=== PATIENT | male | born 1965 | race Caucasian/White ===

== ENCOUNTER 2024-05-30 14:40 | Observation (INO) | payer MEDICAID, SELFPAY ==
[2024-05-30] VITALS (24 sets, daily range): BP systolic 103–134; BP diastolic 42–70; PULSE 57–76; RESP 11–24; TEMP 36.4–37.4; O2SAT 91–100; BMI 28.6
--- NOTE | 2024-05-30 14:45 | DI.RAD_ITS ---
Exam(s) XR HIP LT COMPLETE AP PELVIS XR FEMUR LT EXAM: XR HIP LT COMPLETE AP PELVIS CLINICAL HISTORY: skiing,fall on left hip, r/o fx. TECHNIQUE: 2D digital imaging was performed. Two views of the pelvis and femur. COMPARISON: CR XR FEMUR LT from 05/30/2024 FINDINGS: BONES: There is a subcapital fracture of the left femur with a hip shaft with displacement of the fem ur anteriorly with respect to the femoral head. No additional fractures are identified. No bony greg tructive lesion is seen. JOINTS: No dislocation present. The SI joints and pubic symphysis are intact. There are severe degene rative changes in the left knee. There are [id number] degenerative changes of both hips. Dege nerative changes are also noted in the lower lumbar spine. SOFT TISSUE: Vascular calcifications. IMPRESSION: Subcapital fracture of the left femur. DATA REPOSITORY: RADIATION DOSE DELIVERED:
--- NOTE | 2024-05-30 14:46 | DI.RAD_ITS ---
Exam(s) XR HIP LT COMPLETE AP PELVIS XR FEMUR LT EXAM: XR HIP LT COMPLETE AP PELVIS CLINICAL HISTORY: skiing,fall on left hip, r/o fx. TECHNIQUE: 2D digital imaging was performed. Two views of the pelvis and femur. COMPARISON: CR XR FEMUR LT from 05/30/2024 FINDINGS: BONES: There is a subcapital fracture of the left femur with a hip shaft with displacement of the fem ur anteriorly with respect to the femoral head. No additional fractures are identified. No bony greg tructive lesion is seen. JOINTS: No dislocation present. The SI joints and pubic symphysis are intact. There are severe degene rative changes in the left knee. There are yeri-qj-[id number] degenerative changes of both hips. Dege nerative changes are also noted in the lower lumbar spine. SOFT TISSUE: Vascular calcifications. IMPRESSION: Subcapital fracture of the left femur. DATA REPOSITORY: RADIATION DOSE DELIVERED:
--- NOTE | 2024-05-30 14:48 | W.ED.GENAD ---
Discharge Plan Disposition Patient Disposition: Admit to [facility] Condition: Good Discharge Details Chief Complaint: Orthopedic Clinical Impression: Closed fracture of left hip ED Provider: Ricardo Menendez General Date/Time Provider Initiated Documentation: 05/30/24 14:46. HPI Narrative: 59-year-old male with no significant past medical history who lives in [place] but is visiting here to ski this weekend, presents today for evaluation of fall and left leg pain. Patient was out skiing, he had his helmet on, he tried to do a 360 on the snow (not in the air) and unfortunately fell. He may have twisted his leg, but he is uncertain. He landed and hit on his left hip. He was not able to get up after this. preparer samples and repairs and then subsequent EMS brought him here for further evaluation. He was given a gram of Tylenol. EMS noted that his leg was rotated externally. He is unable to move it. No other complaints at this time. He did not hit his head. He did not lose any consciousness. He has no pain in his chest arms legs head or neck. No other complaints at this time. He is not on any blood thinners. He does not take any medications. Related Data Home Medications ?Medication ?Instructions ?Recorded ?Confirmed Unknown [No Known Home Meds] 05/30/24 05/30/24 Allergies Allergy/AdvReac Type Severity Reaction Status Date / Time No Known Allergies Allergy Unverified 05/30/24 15:33 General Stated Complaint: Orthopedic SILVANA: 3 Exam Narrative Exam Narrative: 1.Const: Well-nourished, Well-developed, appearing stated age 2.Eyes: PERRL, no conjunctival injection, and symmetrical lids. 3.ENT: Atraumatic external nose and ears. Moist MM. Neck: Symmetric, trachea midline, No thyromegaly. There is no evidence of raccoon eyes, klein sign, CSF rhinorrhea, mastoid tenderness, cranial crepitus, exophthalmos, or hyphema. Patient demonstrates intact dentition with no signs of tooth avulsion or fracture, no signs of jaw deformity, no evidence of a LeFort's fracture, with an intact palate, nose and orbital region. There is no evidence of a nasal septal hematoma. No proptosis. Jaw closes symmetrically. Airway is clear. 4.CVS: Regular rate and rhythm, Normal s1 and s2. No murmurs, carotid bruits, rubs, or gallops. Radial pulses 2+ bilaterally and symmetric. Dorsalis pedis pulses 2+ bilaterally and symmetric. 2+ capillary refill. No evidence of distant heart sounds. No extremity edema. No evidence of gross hemorrhage. 5.RESP: Airway clear, no obstructions. No abrasions or ecchymosis. Chest movement symmetric with respirations. No chest wall tenderness. Trachea midline. No crepitus. No step offs. No paradoxical movements. Lungs are clear to auscultation bilaterally. No rales, rhonchi, wheezing or stridor. Breath sound symmetric. No Sucking chest wounds. No clinical evidence of significant chest trauma. 6.GI: Soft, nondistended, nontender. Bowel tones normoactive. No masses or organomegaly. No ecchymosis or abrasions. No periumbilical ecchymosis or seatbelt sign. No flank or CVA tenderness. No clinical signs of significant trauma. No clinical evidence of significant abdominal trauma. 7.MSK: No gross deformities or discolorations or lesions. Tolerates full range of motion of bilateral upper extremities and right lower extremities without tenderness. All compartments of upper and lower extremities are soft with no tenderness. Vascular exam demonstrates brisk capillary refill and intact pulses in all extremities. Pelvic exam demonstrates a stable pelvis, nontender to lateral compression and palpation of symphysis pubis. Patient does have notably minimal tenderness over the greater trochanter of the left hip. Left lower extremity demonstrates external rotation and slight shortening. Patient is unable to flex at the hip or rotate internally or externally at the hip. No cervical thoracic or lumbar spine tenderness. 8.Skin: Warm, Dry. No rashes or lesions. 9.Neuro: town planner II-XII grossly intact. Sensation grossly intact, no focal neurologic deficits. 10.Psych: (AAO) x3. Appropriate mood and affect Course Vital Signs Vital signs: Vital Signs Temperature 36.4 C L 05/30/24 14:42 Pulse 58 L 05/30/24 14:42 Respiratory Rate 14 05/30/24 14:42 Blood Pressure 118/58 L 05/30/24 14:42 Pulse Oximetry 98 05/30/24 14:42 Temperature 36.4 C L 05/30/24 14:42 Pulse 58 L 05/30/24 14:42 Respiratory Rate 14 05/30/24 14:42 Blood Pressure 118/58 L 05/30/24 14:42 Pulse Oximetry 98 05/30/24 14:42 Pain Level 3 05/30/24 14:42 Medical Decision Making 59-year-old male with no significant past medical history who lives in [place] but is visiting here to ski this weekend, presents today for evaluation of fall and left leg pain. Patient was out skiing, he had his helmet on, he tried to do a 360 on the snow (not in the air) and unfortunately fell. He may have twisted his leg, but he is uncertain. He landed and hit on his left hip. He was not able to get up after this. preparer samples and repairs and then subsequent EMS brought him here for further evaluation. He was given a gram of Tylenol. EMS noted that his leg was rotated externally. He is unable to move it. No other complaints at this time. He did not hit his head. He did not lose any consciousness. He has no pain in his chest arms legs head or neck. No other complaints at this time. He is not on any blood thinners. He does not take any medications. Patient does have notably minimal tenderness over the greater trochanter of the left hip. Left lower extremity demonstrates external rotation and slight shortening. Patient is unable to flex at the hip or rotate internally or externally at the hip differential is highest for hip fracture. Will get x-ray imaging. Patient does not want anything additional for pain. X-ray shows evidence of left hip fracture. Spoke with Dr. Brown, he will be taking the patient to the OR for surgical management. Labs and type and screen and EKG will be performed in preparation for OR. Patient is NPO since 9 AM. I have extensively reviewed the treatment plan with the patient. I have addressed all patient concerns at this time. I have also discussed the plan with the admitting physician and they agree with the current assessment and plan and have agreed to assume responsibility for the patient. All parties demonstrate verbal understanding and agreement with our assessment and plan at this time. The documentation in this chart was dictated using [employer] dictation software. Please excuse any dictation errors. FINDINGS: BONES: There is a subcapital fracture of the left femur with a hip shaft with displacement of the femur anteriorly with respect to the femoral head. No additional fractures are identified. No bony destructive lesion is seen. JOINTS: No dislocation present. The SI joints and pubic symphysis are intact. There are severe degenerative changes in the left knee. There are opay-[id number] degenerative changes of both hips. Degenerative changes are also noted in the lower lumbar spine. SOFT TISSUE: Vascular calcifications. IMPRESSION: Subcapital fracture of the left femur. FINDINGS: BONES: There is a subcapital fracture of the left femur with a hip shaft with displacement of the femur anteriorly with respect to the femoral head. No additional fractures are identified. No bony destructive lesion is seen. JOINTS: No dislocation present. The SI joints and pubic symphysis are intact. There are severe degenerative changes in the left knee. There are fgmu-bk-[id number] degenerative changes of both hips. Degenerative changes are also noted in the lower lumbar spine. SOFT TISSUE: Vascular calcifications. IMPRESSION: Subcapital fracture of the left femur. Quality:SDOH Health Related Social Needs: No Data to Display PFSH All Active Problems (Updated 05/30/24 @ 15:34 by Ricardo Menendez DO) Closed fracture of left hip (Acute) Social History Smoking/Tobacco Use Status: Never Smoking risk assessment performed?: Yes Alcohol Intake: current Alcohol Intake frequency: a few times a week Drug use: Never Substance use type: does not use Housing: house Do you feel safe at home: Yes Do you feel safe in your relationship?: Yes
--- NOTE | 2024-05-30 15:15 | RT.EKG_ITS ---
APPROVED REPORT Exam: Resting ECG Reason for Exam: surgery Patient Location: E HR:62 bpm ECG Measurements Heart Rate 62 AXIS OH 187 P -9 QRSd 108 QRS 75 QT 416 T 33 QTc 425 Conclusion Sinus rhythm...normal P axis, V-rate 60- 99 I have reviewed and interpreted ECG and agree with software generated interpretation.
[2024-05-30 15:42] LABS: Abs Immature Grans 0.05 10^3/uL (0.0-0.06); Absolute Basophil Count 0.01 10^3/uL (0.0-0.2); Absolute Eosinophil Count 0.24 10^3/uL (0.0-0.7); Absolute Lymphocyte Count 1.25 10^3/uL (1.2-3.4); Absolute Monocyte Count 0.48 10^3/uL (0.1-0.8); Absolute Neutrophil Count 8.12 10^3/uL (1.2-6.7); Basophils % 0.1 %; Eosinophils % 2.4 %; HCT 36.5 % (40.0-50.0); HGB 12.2 g/dL (13.5-17.5); Immature Grans % 0.5 %; Lymphocytes % 12.3 %; MCHC 33.4 % (32.0-36.0); MCV 93 fL (80-95); MPV 10.1 fL (8.0-11.0); Monocytes % 4.7 %; Platelet Count 184 10^3/uL (130-400); RBC 3.93 10^6/uL (4.36-5.78); RDW 12.9 % (11.8-14.1); RDW-SD 44.4 fL; WBC 10.15 10^3/uL (4.4-10.8)
[2024-05-30] MEDS: MORPHine 4 MG/ML SYR IVP (15:51)
[2024-05-30 15:53] LABS: INR 1.1 (0.9-1.1); PTT Activated 20.5 sec (20.6-30.2); Prothrombin Time 10.6 sec (9.1-11.1)
--- NOTE | 2024-05-30 15:55 | ANES.PREOP_ITS ---
General Info Date of Service Date Performed: 05/30/24 Height: 5 ft 9 in Weight: 88 kg Body Mass Index (BMI): 28.6 Surgical Procedure: Operation Date: 05/30/24 17:50 Proposed Procedure Side Surgeon p Hip Total Hip Anterior Gael Brown MD Meds Allergies and Home Medications Allergies Allergy/AdvReac Type Severity Reaction Status Date / Time No Known Allergies Allergy Unverified 05/30/24 15:33 Home Medication ?Medication ?Instructions ?Recorded Unknown [No Known Home Meds] 05/30/24 Current Visit Medications: Current Medications Generic Name Dose Route Start Last Admin Trade Name Freq PRN Reason Stop Dose Admin IV Miscellaneous Supplies 1 each 05/30/24 15:00 Iv Access-Emergency Dept IV DIRECTED MARCO A Sodium Chloride 0 ml 05/30/24 14:46 Normal Saline Flush 10 Ml Syr IVP PRN PRN Sodium Chloride 0 ml 05/30/24 20:00 Normal Saline Flush 10 Ml Syr IVP BID MARCO A Sodium Chloride 0 ml 05/30/24 14:46 Normal Saline 10 Ml Vial IJ DIRECTED PRN PFSH Active Problems Active Problems: Problem Status Onset Code Closed fracture of left hip Acute S72.002A Tobacco Smoking/Tobacco Use Status: Never Alcohol Alcohol Intake: current Alcohol intake frequency: a few times a week Substance Use Substance use: Never Substance use type: does not use Vital Signs and Lab Results Vital Signs Most Recent Vital Signs in EMR: Most Recent Vital Signs Temp Pulse Resp BP Pulse Ox 36.4 C L 70 14 103/51 L 93 05/30/24 14:42 05/30/24 15:31 05/30/24 14:42 05/30/24 15:30 05/30/24 15:31 Lab Results 05/30/24 15:35 05/30/24 15:35 Blood Type / Crossmatch: 2 Antibody Screen Pending 05/30/24 Complete Blood Count: 2 White Blood Count Pending 05/30/24 15:35 Red Blood Count Pending 05/30/24 15:35 Hemoglobin Pending 05/30/24 15:35 Hematocrit Pending 05/30/24 15:35 Platelet Count Pending 05/30/24 15:35 Complete Metabolic Panel: 2 Sodium Pending 05/30/24 15:35 Potassium Pending 05/30/24 15:35 Chloride Pending 05/30/24 15:35 Carbon Dioxide Pending 05/30/24 15:35 BUN Pending 05/30/24 15:35 Creatinine Pending 05/30/24 15:35 Est GFR (CKD-EPI 2020) Pending 05/30/24 15:35 Calcium Pending 05/30/24 15:35 Albumin Pending 05/30/24 15:35 Glucose Pending 05/30/24 15:35 Liver Function Panel: 2 Alanine Aminotransferase (ALT/SGPT) Pending 05/30/24 15: 35 Aspartate Amino Transf (AST/SGOT) Pending 05/30/24 15:35 Coagulation Panel: 2 INR International Normalized Ratio 1.1 (0.9-1.1) 05/30/24 15:3 5 Prothrombin Time 10.6 sec (9.1-11.1) 05/30/24 15:35 Activated Partial Thromboplast Time 20.5 sec (20.6-30.2) L 05/30/24 15:35 Cardiac Panel: 2 No Data to Display Arterial Blood Gas: 2 No Data to Display Venous Blood Gas: 2 No Data to Display Pancreas Panel: 2 No Data to Display Thyroid Panel: 2 No Data to Display Infectious Disease: 2 No Data to Display Blood Cultures: 2 No Data to Display Toxicology Panel: 2 No Data to Display Anesthesia Assessment and Plan Anesthesia History Personal History: No History of Anesthesia Complications Family History: Other (Unknown family hx) Exercise Tolerance Exercise Tolerance: Metabolic Equivalents>4 Pertinent Negatives Pertinent Negatives: No Symptoms of GERD Cardiac & Pulmonary Exam Cardiac Exam: Normal S1/S2 Heart Sounds Pulmonary Exam: Clear Bilateral Breath Sounds Implantable Cardiac Device Does patient have a Pacemaker or an ICD?: No Airway Exam Known Difficult Airway: No Mallampati Class: 2 Mouth Opening: Normal (> 3cm) Thyromental Distance: Greater than 3 cm Neck Range of Motion: Full ROM Neck Circumference: Normal Teeth Condition: Normal Dentition ASA Classification ASA Score: ASA 2 Emergency Case?: Yes NPO Status NPO Status: NPO Clears >2 hours, Solids >8 hours Anesthesia Plan Resuscitation Status: Full Code Anesthesia Technique: General Anesthesia Airway Planned: Endotracheal Tube Monitors Used: Standard Monitors
--- NOTE | 2024-05-30 15:55 | W.ORTHOCONSU ---
Date of service: 05/30/24 Time of Service: 15:45 History of Present Illness History of Present Illness Chief Complaint: Left Hip Pain Narrative: Saleem is an active 59-year-old male who is seen today at [facility]. He tried to do 360 but the left leg got stuck in the snow and he had an immediate painful sensation and went down to the ground. He is unable to ambulate and was brought to the emergency department by EMS services. I was called for consultation and management of a left femoral neck fracture. He denies any other significant medical injuries or issues. He denies previous surgery or major injury. He denies numbness or tingling. He denies any active medical issues or recent illness. Consults Consult date: 05/30/24 Requesting physician: Ricardo Menendez Consult Reason Left femoral neck fracture Assessment and Plan Assessment and plan (1) Displaced fracture of left femoral neck: Status: Acute Assessment and plan: Saleem is a 59-year-old active male who suffered a fracture of the left femoral neck. This is completely displaced. He also has concomitant arthritis about the left hip. I was very honest with Saleem that given the displacement of this femoral neck fracture, reduction and fixation carries a risk of avascular necrosis, potentially up to 30% which would likely result in need for additional surgery in the form of a hip replacement. He also already has arthritis about the left hip. He denies being terribly symptomatic about his left hip but he is symptomatic from his left knee arthritis. I had a long discussion with Saleem about the treatment options but my recommendation would be for hip replacement in this situation. The likelihood of complication from hip replacement is much lower than the potential risk of osteonecrosis. Additionally, the functional recovery from hip replacement is usually going to be more full with less restrictions then with reduction and fixation. I reviewed some the technical details of hip replacement. I did discuss some of the unique risk that accompany hip replacement such as infection, periprosthetic fracture, dislocation. I was very honest with him that major complications are rare, less than 1%, yet there are 5 to 10% of patients do have some form of transient nerve issue, weakness, stiffness, tendinitis, bursitis. He was very clear that he does not want to have to consider a second procedure and wants to be as mobile and is active as possible soon as possible. Therefore, with his age, displaced nature of the fracture, fracture location, and underlying arthritis, I recommend proceeding with a hip replacement. He last had anything to eat and drink around 9 AM and therefore we will proceed with surgery this evening. Review of Systems All systems reviewed & are unremarkable except as noted in HPI and below PFSH All Active Problems (Updated 05/30/24 @ 16:01 by Gael Brown MD) Displaced fracture of left femoral neck (Acute) Closed fracture of left hip (Acute) Social History Smoking/Tobacco Use Status: Never Smoking risk assessment performed?: Yes Alcohol Intake: current Alcohol Intake frequency: a few times a week Drug use: Never Substance use type: does not use Housing: house Do you feel safe at home: Yes Do you feel safe in your relationship?: Yes Exam Const General: cooperative, healthy appearing, uncomfortable and no acute distress Resp Effort & Inspection: normal respiratory effort Auscultation: clear to auscultation bilaterally Cardio Rate: regular rate Rhythm: regular rhythm Extrem Other: Evaluation of the left lower extremity shows a slightly externally rotated and shortened left lower leg. There is no pain to compression of the pelvis. There is pain with palpation of the proximal left leg. No pain at the level of the lower leg, ankle, or foot. Sensation intact to light touch over the deep and superficial peroneal nerve and tibial nerve. Palpable DP and PT pulse. Results Last Vital Signs Temp 36.4 C L 05/30/24 14:42 Pulse 70 05/30/24 15:31 Resp 14 05/30/24 14:42 BP 103/51 L 05/30/24 15:30 Pulse Ox 93 05/30/24 15:31 Labs 05/30/24 15:35 05/30/24 15:35 Labs: Laboratory Results - last 24 hr 05/30/24 15:35 PT 10.6 INR 1.1 APTT 20.5 L Imaging Imaging Studies: X-ray of the left femur and left hip shows a subcapital transcervical femoral neck fracture with complete displacement. There is posterior angulation of the femoral head as well as shortening and varus collapse. There are notable arthritic changes seen already within the hip noted by osteophytes, subchondral sclerosis and narrowing of the hip joint space as well as osteophytes of the lateral head?neck junction. He also has notable arthritic change seen within the left knee and within the lower lumbar spine.
[2024-05-30 15:56] LABS: ALT 40 U/L (16-63); AST 32 U/L (15-37); Albumin 3.4 g/dL (3.4-5.0); Alkaline Phosphatase 56 U/L (46-116); BUN 19 mg/dL (7-18); Bilirubin, Total 0.3 mg/dL (0.2-1.0); CREATININE 0.9 mg/dL (0.70-1.30); Calcium 8.9 mg/dL (8.5-10.1); Chloride 108 mmol/L (98-107); Estimated GFR 98.38 (mL/min/1.73m2); Glucose 104 mg/dL (74-106); Sodium 144 mmol/L (136-145); Total Protein 6.6 g/dL (6.4-8.2)
[2024-05-30] MEDS: Lactated Ringers 1,000 ML 100 ML IV (17:18)
--- NOTE | 2024-05-30 19:09 | ROE_ITS ---
Operative Note Operative Note PRE-OP DIAGNOSIS: Displaced Left Femoral Neck Fracture POST-OP DIAGNOSIS: same PROCEDURE: Left Anterior Total Hip Arthroplasty with Intraoperative Navigation SURGEON: Gael Brown PERINATAL TECHNICIAN: Kayla Garber ANESTHESIA TYPE: General LMA/ETT Refer to Anesthesia Record ESTIMATED BLOOD LOSS: 600 PATHOLOGY: none sent TOURNIQUET TIME: 0 COMPLICATIONS: None Patient was transported to: PACU Patient's condition: stable Implants: 1. Depuy Golf Acetabular Component, 56mm 2. Depuy Acetabular Liner, [id number] 3. Depuy Actis Standard Collared Femoral Stem, Size 6 4. Depuy Altrx Ceramic Femoral Head, Size 36+5mm Indications: I have seen Saleme in in consultation from the emergency department for displaced left femoral neck fracture. Given the displaced nature of the fracture, his age, and underlying arthritis, I recommended hip replacement for the ideal treatment. I discussed the technical details of a hip replacement. I explained the risks of the procedure to include, but not limited to, bleeding, infection, pain, stiffness, fracture, damage to nerves and vessels, damage to muscles and tendons, loosening, instability, leg length inequality, need for repeat procedure, blood clot and cardiopulmonary demise. Despite these risks, [NAME] elected to proceed. Findings: There was a comminuted fracture of the subcapital the transcervical region of the left femoral neck. There also appeared to be some fracturing of the cartilage of the acetabulum but did not extend into the acetabular bone. There was significant vascularity of the acetabulum during the reaming process which led to some blood loss but no specific vascular injury. A cementless hip replacement was placed without difficulty. Procedure Description: Saleem was greeted in the PACU where the correct side was identified and marked. The consent was reviewed with the patient and signed. The history and physical was updated. All questions were answered. He was taken back to the operating room. A general anesthetic was then administered. The feet were wrapped with cast padding and Coban and then placed into the boot liners and then into the boots. Care was taken to protect the skin and make sure the heels were fully down and the boots were stable. The patient was then positioned onto the HANA table. Both legs were held in a neutral position. SCDs were applied. The patient was then slid down onto a peroneal post. Prophylactic antibiotics in the form of Cefazolin were administered. 1g of Tranxemic Acid was given intravenously within 30 minutes of incision. The left leg was then prepped with Chloraprep and draped in a standard fashion. A second prep with Chloraprep was performed prior to placement of a shower-curtain type drape with Iodine impregnated skin protection. A timeout to confirm correct identity, side and site, procedure, allergies, anesthesia, and medical concerns was performed. An obliquely oriented incision was made starting lateral to the ASIS and running distal over the Tensor Fascia Janis (TFL) muscle belly toward the fibular head, approximately 10cm. The skin and soft tissue was dissected sharply, through Gauri?s fascia, and to the fascia of the TFL. With the fascia and superior border of the IT band identified, the fascia was incised with a new knife just above any perforators from the IT band. The TFL muscle belly was bluntly dissected away from the fascia and moved laterally. The fat between TFL and rectus was identified to ensure the dissection was not within the TFL. Blunt dissection created space between abductors and the capsule and retractor was placed over the lateral femoral neck. The fibers of the rectus femoris tendon were identified and these were freed from the anterior capsule. A second cobra retractor was placed around the medial femoral neck. The TFL was further retracted laterally to show the deep fascia. Careful dissection through this layer identified three main crossing vessels of the lateral femoral circumflex. These were cauterized in multiple locations and then cut without any noticeable bleeding. The TFL was further released bluntly from the deep fascia to expose anterior hip capsule and fat The soft tissue orthopaedic retractor was then placed beneath the TFL and against sartorius and medial soft tissues to protect and retract the soft tissues. A T-capsulotomy was then performed starting at the superior lateral acetabulum and moving distally to the intertrochanteric ridge. These capsular flaps were tagged with a No. 1 Vicryl and elevated from within. The capsular flaps were released to the shoulder of the lateral neck and to the lesser trochanter to give excellent visualization of the proximal femur. The fracture of the femoral neck extended from the subcapital region medially to more transcervical region laterally. There is some comminution as well. The femoral head was then removed with use of corkscrew. A neck osteotomy was performed using an oscillating saw based on preoperative templates. This cut started in the shoulder and of the lateral neck and exited medially. The saw was at all times directed medially to avoid injury to the greater trochanter. This bone fragment was then removed. Traction was released after head removal. This was measured on the back table to determine the starting reamer size. Portions of the rectus obscuring visualization were minimally elevated off the superior acetabulum. An anterior retractor was placed over the anterior wall between capsule and labrum and attached to the Gripper retraction system. The femur was rotated to 90 degrees and medial capsule was fully released until the lesser trochanter was palpable and visible; the femur was returned to 30 degrees. A posterior retractor was placed similarly between capsule and labrum. This provided excellent visualization. The contents of the cotyloid fossa were removed with electrocautery and the labrum was removed with a knife. There was some fracturing of the superior acetabular cartilage which look to be potentially traumatic in nature. A Corona was placed in the cracks which did not seem to go down through the bone but simply were fissuring of the cartilage surface. There was some chondromalacia the superior acetabulum as well as a lateral osteophyte. Acetabular reaming began with a 52mm reamer. This first reaming was directed anterior to posterior and medial to get down to the true floor. This was inspected and reamed until the true floor was reached. There was notable bleeding coming from the acetabular bone centrally. There were no bleeding from the obturator artery branches within the cotyloid fossa but instead it was from the actual cancellous bone exposed with the reaming process. The anterior retractor was then released and entry and exit was provided by traction on the capsular flaps. I then reamed sequentially up to a 56mm reamer where good fit was obtained. The larger reamers were oriented based on anatomical reference of the anterior and lateral augustine to ensure proper abduction and anteversion. Positioning and size was confirmed with the fluoroscopy. A 56mm Depuy Golf acetabular component was selected. The acetabulum was reamed around the periphery with the selected acetabular size to prevent a rim fit. The deep tissues were irrigated. The acetabular component was then impacted in a position of about 40-45 degrees of abduction and 15-20 degrees of anteversion, using the patient?s anatomy as the ultimate landmark. Fluoroscopy was used to confirm this. There was excellent commercial teller of the acetabular component and the inserting handle was removed. The acetabular liner, Depuy [id number] polyethylene liner, was inserted and lined up with the tines of the acetabular component. There was no soft tissue interposition. The liner was then impacted into position and confirmed to be well-seated. A portion of the zulema-articular cocktail was then injected around the acetabulum into the capsule and periosteum. This cocktail consisted of 123mg of Ropivacaine, 0.25mg of Epinephrine, 0.04mg of Clonidine, and 15mg of Ketorolac, diluted to 50cc. The leg was rotated to 120 degrees. Any remaining medial capsule was released until the lesser trochanter was easily palpable. A retractor was placed medially. The lateral capsule was further released into the shoulder to allow access to the greater trochanter. A Frankel retractor was placed over the greater trochanter which allowed the trochanter to flip in front of the capsule for excellent exposure. The leg was brought down into maximal extension and 20 degrees of adduction while ensuring there was no impingement on the acetabulum. Any remnant capsule within the trochanter was released. Piriformis and obturator externis were identified and protected. There was excellent access to the proximal femur. The lateral neck remnant was removed with a rongeur. A blunt canal probe was used to identify the canal and trajectory for later broaching. A box osteotome initiated the broach course. A small curved rasp and a curved curette were used to work laterally. Broaching then began with a starter Actis broach. This was inserted manually around the trochanter and into the canal before mallet blows. The broach was seated to a few millimeters below the cut level based on the neck cut and the preoperative template. Sequential broaching was continued with the Coco Controllercise pneumatic broaching device until a tight fit was obtained with good rotational control of the femur. A trial standard neck was inserted along with a +5 trial head. The leg was brought out of extension and adduction and then reduced with traction and internal rotation. The leg was stable anteriorly in a position of 30 degrees of extension and 90 degrees of external rotation. Fluoroscopy was used to ensure there was no fracture and the stem was seated well. Leg lengths were checked with an AP pelvis and pelvic reference points. Dragon Inside navigation system was used to confirm appropriate positioning and leg length and offset. Once content with the desired offset and leg lengths, the leg was brought back into extension, external rotation and adduction. The periosteum and surrounding tissue was injected with remaining portion of the zulema-articular cocktail. The proximal femur was irrigated as well as the deep tissues. The Depuy Actis standard collared stem, size 6, was then manually inserted into the proximal femur making sure to control rotation. It was then malleted into position with light blows, giving breaks to allow bone expansion and decrease risk of fracture. The selected Depuy Altrx Ceramic Head, size 36+5mm, was then placed onto the clean and dry trunnion and secured with impaction onto the tapered fit. The leg was brought back out of extension and adduction and reduced with traction and internal rotation. Stability was confirmed with no shuck at 90 degrees of external rotation and 30 degrees of extension. No impingement th rough range of motion arc. Final x-ray images were obtained with fluoroscopy to confirm adequate positioning and no intraoperative fracture. The deep tissues were thoroughly irrigated with Surgiphor, betadine solution. This was allowed to sit in the wound for 3 minutes before being thoroughly irrigated out with normal saline. The capsule was then reapproximated with the previously placed sutures. The TFL fascia was finally closed with a No. 2 Stratafix, barbed suture. Deep tissues were then reapproximated with 0 Vicryl and a running 2-0 Vicryl. The skin was closed with a running 4-0 Monocryl in a subcuticular fashion. This was reinforced with skin glue. A Mepilex silver dressing was applied. At the end of the case, all counts were correct. Saleem was transferred to the hospital bed without difficulty and suffering no apparent complication except for slightly higher than expected blood loss due to acetabular bone bleeding yet he remained stable throughout the entirety of the case. Saleem has a good prognosis. Physical therapy will start today and without restrictions, weight-bearing as tolerated. Aspirin 81mg BID will be used for DVT prophylaxis. Date of Procedure: 05/30/24
--- NOTE | 2024-05-30 19:13 | DI.RAD_ITS ---
Exam(s) XR HIP LT IN OR EXAM: XR HIP LT IN OR CLINICAL HISTORY: LEFT HIP FRACTURE. TECHNIQUE: 2D digital imaging was performed. COMPARISON: No exams were available for comparison FINDINGS: Fluoroscopy was provided intraoperatively during left hip arthroplasty. See procedure report for det ails. Total fluoroscopy time 28.8 seconds IMPRESSION: Radiation exposure index/cumulative dose: radha Solomon=3.1408 mGY DATA REPOSITORY: RADIATION DOSE DELIVERED:
--- NOTE | 2024-05-30 20:03 | W.ANESPOSTOP ---
Postoperative Evaluation Date, Time and Location Date Performed: 05/30/24 Time Performed: 20:03 Patient Location: PACU Vital Signs Most Recent Imported Vital Signs: Most Recent Vital Signs Temp Pulse Resp BP Pulse Ox 36.5 C 73 141 H 122/70 97 05/30/24 19:56 05/30/24 19:56 05/30/24 19:56 05/30/24 19:56 05/30/24 19:56 Pain Score Most Recent Pain Score: Most Recent Pain Score Pain Level 0 05/30/24 19:56 Assessment Mental Status: Awake (Alert & Oriented to Patient Baseline) Airway and Respiratory Function: Patent airway with normal (patient baseline) respiratory exam Cardiovascular Function: Hemodynamically Stable Hydration Status: Adequately Hydrated Nausea & Vomiting: No Nausea or Vomiting Pain: Pt. Denies Any Pain Peripheral Nerve Block: Patient did not receive a nerve block
[2024-05-30] MEDS: Tranexamic Acid 650 MG TAB 1300 MG PO (20:39)
[2024-05-30] MEDS: HYDROmorphone 2 MG/ML SYR 0.5 MG IVP (20:40)
[2024-05-30] MEDS: Normal Saline Flush 10 ML SYR IVP (20:41)
--- NOTE | 2024-05-30 21:43 | NUR.NOTE ---
Received patient from recovery room at 20:15. Patient alert and oriented with c/o 8/10 left hip pain. Nursing Note:
[2024-05-30] MEDS: Ketorolac 15 MG/ML VIAL IVP (23:03)
[2024-05-30] MEDS: ceFAZolin 1 GM/50 ML BAG IVPB (23:05)
[2024-05-31 04:28] VITALS: BP 104/53; PULSE 61; RESP 18; TEMP 37.6; O2SAT 93
[2024-05-31] MEDS: Ketorolac 15 MG/ML VIAL IVP ×2 (05:53→10:49)
[2024-05-31] MEDS: ceFAZolin 1 GM/50 ML BAG IVPB ×2 (06:24→13:20)
[2024-05-31 07:07] LABS: HCT 31.3 % (40.0-50.0); HGB 10.6 g/dL (13.5-17.5); MCH 31.2 pg (27.0-33.0); MCHC 33.9 % (32.0-36.0); MCV 92 fL (80-95); MPV 10.8 fL (8.0-11.0); Platelet Count 188 10^3/uL (130-400); WBC 11.72 10^3/uL (4.4-10.8)
--- NOTE | 2024-05-31 07:14 | W.PM.PROGNOT ---
Date of Service Date of service: 05/31/24 Time of Service: 07:14 Assessment and Plan Assessment and plan (1) Displaced fracture of left femoral neck: Status: Acute Assessment and plan: Saleem is a 59-year-old male who is status post left hip replacement for displaced femoral neck fracture. He appears to be doing well. We did lose more blood than usual yesterday. His hemoglobin this morning did drop 2 points. However, his vital signs been stable. He is asymptomatic. I would expect a drop a little bit more from this point but should not be enough to be clinically relevant. We will start mobilization this morning and likely be able to discharge back to home later today. Subjective Subjective Interval history since last seen: Saleem reports to be doing well. He had some pain after surgery but is otherwise able to sleep some of the night. He has been able to urinate into the urinal. He denies chest pain shortness of breath. He denies numbness or tingling. He has been moving his leg around in the bed and is happy that he does not have pain with motion. Exam Narrative Exam Narrative: Laying supine in the bed. No acute distress. Alert and orient x 3. Dressing about the left hip is clean dry and intact. There is some mild swelling but no bruising. Sensation intact to light touch over the femoral, lateral from cutaneous, sciatic nerve distributions. He has intact knee extension, ankle dorsiflexion, ankle plantarflexion, great toe extension, great toe flexion. Objective Last Vital Signs Temp 37.6 C H 05/31/24 04:28 Pulse 61 05/31/24 04:28 Resp 18 05/31/24 04:28 BP 104/53 L 05/31/24 04:28 Pulse Ox 93 05/31/24 04:28 Laboratory Results - last 24 hr 05/30/24 05/31/24 15:35 06:15 WBC 10.15 11.72 H RBC 3.93 L 3.40 L Hgb 12.2 L 10.6 L Hct 36.5 L 31.3 L MCV 93 92 MCH 31.0 31.2 MCHC 33.4 33.9 RDW 12.9 13.0 Plt Count 184 188 MPV 10.1 10.8 Immature Gran % 0.5 Neutrophils % 80.0 Lymphocytes % 12.3 Monocytes % 4.7 Eosinophils % 2.4 Basophils % 0.1 Nucleated RBC % 0.0 Absolute Neutrophils 8.12 H Absolute Lymphocytes 1.25 Absolute Monocytes 0.48 Absolute Eosinophils 0.24 Absolute Basophils 0.01 PT 10.6 INR 1.1 APTT 20.5 L Sodium 144 Potassium 4.0 Chloride 108 H Carbon Dioxide 29.0 Anion Gap 7.0 BUN 19 H Creatinine 0.9 Est GFR (CKD-EPI 2020) 98.38 Glucose 104 Calcium 8.9 Total Bilirubin 0.3 AST 32 ALT 40 Alkaline Phosphatase 56 Total Protein 6.6 Albumin 3.4 ABO/Rh A Positive Antibody Screen NEGATIVE Time Spent with Patient Time Spent with Patient: <25 minutes Time was spent: preparing to see the patient(eg.review tests), ordering medications,tests, procedures, indepentently interpreting results and counseling the patient
--- NOTE | 2024-05-31 07:16 | DSE_ITS ---
Date of service: 05/31/24 Time of Service: 09:52 DS: Diagnosis Discharge Diagnosis (1) Displaced fracture of left femoral neck: Status: Acute Discharge Plan Disposition Patient Disposition: Home Condition: Improving Discharge Details Reason For Visit: ski fall/ hip pain Admit Date/Time: 05/30/24 20:21 Admit Provider: Gael Brown Attending Provider: Gael Brown [facility] Course: Deshawn was diagnosed with a displaced femoral neck fracture from ski trauma. He was taken to the operating room from the emergency department for hip replacement as a treatment for his femoral neck fracture. He was admitted to the medical/surgical floor following the procedure for close observation, evaluation, and management. The surgery was tolerated well without any notable medical, surgical, or anesthetic complications except for slightly higher than anticipated blood loss. He was voiding spontaneously. Vitals were stable. His hemoglobin did drop approximately 2 points but he remained stable and asymptomatic. Mobilization began weightbearing as tolerated. Physical therapy worked with the patient and was cleared for discharge home. No acute medical issues. Pain was controlled on oral regimen. Home Meds and New Rx's Prescriptions: New celecoxib 200 mg capsule 200 mg PO BID PRN (Reason: pain) Qty: 60 1RF aspirin 81 mg tablet,delayed release (DR/EC) 81 mg PO BID Qty: 60 0RF acetaminophen 500 mg tablet 1,000 mg PO Q8H PRN (Reason: pain) Qty: 90 3RF pantoprazole 40 mg tablet,delayed release (DR/EC) 40 mg PO DAILY Qty: 30 0RF docusate sodium [Colace] 100 mg capsule 100 mg PO BID PRNQty: 10 0RF oxycodone 5 mg tablet 5 mg PO Q6H PRN (Reason: pain) Qty: 12 0RF Discharge Instructions Additional Instructions: Total Hip Discharge Instructions Activity: The most important activity is to walk. You should try to take short walks a few times a day. You have no restrictions on movement or positioning, but do not try to force what you do. You will find some stiffness and weakness with hip flexion (lifting your knee). Do not try to strengthen this too early, continue to practice walking and stairs and this will come. - Outpatient physical therapy can be helpful to help return you to a normal gait and improve your flexibility and strength. This can start around 2 weeks. For some patients, it?s not necessary. Usually this is determined at the time of discharge or at the first post-operative visit. You may reach out to your local physical therapy facility for an appointment. I can also submit a referral to whichever facility you choose. - You should wear the KELVIN hose on both legs for 2 weeks but may remove them at any point. I do recommend that they come off at the 2-week interval. Dressing: Keep the surgical dressing in place for at least one week. After the first week it may be removed and replace with light gauze and tape or nothing. It may get wet after 3 days but avoid soaking the dressing. If it gets wet, just lightly pat dry. It is important to always keep some gauze between skin folds, especially when you are sitting. Spend some time with the wound exposed when you are lying flat as the incision does wrinkle onto itself. Medications: - You should take Tylenol and an anti-inflammatory Celebrex as your primary pain control medications. If the Celebrex is too expensive or not covered, please call the office for another alternative (Advil/Ibuprofen or Naproxen/Aleve). - You have been prescribed a stronger pain medication Oxycodone for breakthrough pain, take as needed as prescribed. - You have also been prescribed a stomach acid reduction agent Pantoprozole to help reduce stomach acid and reflux. - You will be taking Aspirin 81mg twice a day for DVT prevention unless instructed otherwise. - If you have constipation you should take Colace or Miralax (both [id number]). It takes most people 3-4 days to have a bowel movement. Follow-up: - Ideally, you should see an orthopedic surgical team within the first 2 to 4 weeks for wound check and evaluation. Typically x-rays would be performed at that time. Usually, I see patients back 1 additional visit to ensure that they are progressing appropriately and then at the 1 year anniversary for x-rays. I am also happy to follow-up with you by phone with pictures and x-rays if that turns out to be more convenient. If you have any acute concerns or questions, please do not hesitate to contact the office at [phone]. You may contact Dr. Brown with any questions after hours through the hospital at [phone] or on his cell phone at [phone]. Activity:: Activity as Tolerated Equipment/Supplies:: Crutches Diet:: As Tolerated Discharge Orders Discharge Orders: Discharge Order (Routine); Ordered 05/31/24 Ordered By: Gael Brown DS: Summary Time Spent with Patient providing and/or coordinating discharge services: Less than 30 minutes Status at Discharge Functional status at discharge: uses cane/walker Overall status at discharge: patient is progressing back to baseline Mental Status: mental status grossly normal Speech and Movement: speech and movement normal Mood: congruent mood Affect: normal affect Quality:SDOH Health Related Social Needs: No Data to Display Exam Psych Mental Status: mental status grossly normal Speech and Movement: speech and movement normal Mood: congruent mood Affect: normal affect DS: Data Vitals/I&O Vitals and I&O: Vital Signs Temperature 37.6 C H 05/31/24 04:28 Temperature Source Temporal Artery Scan 05/31/24 04:28 Pulse 61 05/31/24 04:28 Respiratory Rate 18 05/31/24 04:28 Respiratory Effort Normal, Non-Labored 05/30/24 21:30 Respiratory Depth Normal 05/30/24 21:30 Respiratory Pattern Normal 05/30/24 21:30 Blood Pressure 104/53 L 05/31/24 04:28 Blood Pressure Mean 64 05/30/24 16:01 Pulse Oximetry 93 05/31/24 04:28 Respiratory End-tidal CO2 36 05/30/24 20:01 Oxygen Delivery Method Room Air 05/31/24 04:28 Oxygen Flow Rate 0 05/31/24 04:28 Pain Level 8 05/30/24 21:30 Intake & Output 05/30/24 05/30/24 05/31/24 11:59 23:59 11:59 Intake Total 600 / 600 450 / 450 Output Total 600 / 600 Balance 0 / 0 450 / 450 Weight 88 kg Intake: IV 600 / 600 450 / 450 Output: Estimated Blood Loss 600 / 600 Other: Urine Appearance Clear Emesis Description None Data Completed and Pending Labs on day of discharge: Labs from last 24 hours 05/31/24 05/30/24 06:15 15:35 WBC 11.72 H 10.15 RBC 3.40 L 3.93 L Hgb 10.6 L 12.2 L Hct 31.3 L 36.5 L MCV 92 93 MCH 31.2 31.0 MCHC 33.9 33.4 RDW 13.0 12.9 Plt Count 188 184 MPV 10.8 10.1 Immature Gran % 0.5 Neutrophils % 80.0 Lymphocytes % 12.3 Monocytes % 4.7 Eosinophils % 2.4 Basophils % 0.1 Nucleated RBC % 0.0 Absolute Neutrophils 8.12 H Absolute Lymphocytes 1.25 Absolute Monocytes 0.48 Absolute Eosinophils 0.24 Absolute Basophils 0.01 PT 10.6 INR 1.1 APTT 20.5 L Sodium Pending 144 Potassium Pending 4.0 Chloride Pending 108 H Carbon Dioxide Pending 29.0 Anion Gap Pending 7.0 BUN Pending 19 H Creatinine Pending 0.9 Est GFR (CKD-EPI 2020) Pending 98.38 Glucose Pending 104 Calcium Pending 8.9 Total Bilirubin 0.3 AST 32 ALT 40 Alkaline Phosphatase 56 Total Protein 6.6 Albumin 3.4 ABO/Rh A Positive Antibody Screen NEGATIVE PFSH All Active Problems Displaced fracture of left femoral neck (Acute) s/p L JOSE FRANCISCO (05/30/24) Closed fracture of left hip (Acute) Social History Smoking/Tobacco Use Status: Never Smoking risk assessment performed?: Yes Alcohol Intake: current Alcohol Intake frequency: a few times a week Drug use: Never Substance use type: does not use Housing: house Do you feel safe at home: Yes Do you feel safe in your relationship?: Yes Time Spent with Patient Time Spent with Patient: <45 minutes Time was spent: preparing to see the patient(eg.review tests), obtaining and/or reviewing separately otained hiistory and counseling the patient
[2024-05-31 07:33] LABS: Anion Gap 8.5 mmol/L (3-11); BUN 20 mg/dL (7-18); CO2 26.5 mmol/L (21.0-32.0); Calcium 8.6 mg/dL (8.5-10.1); Chloride 105 mmol/L (98-107); Glucose 123 mg/dL (74-106); Potassium 4.2 mmol/L (3.5-5.1); Sodium 140 mmol/L (136-145)
--- NOTE | 2024-05-31 08:17 | PT.INIE ---
PT Notes Visit Reasons: ski fall/ hip pain Inpatient Physical Therapy Evaluation Date: 05/31/24 Referring Doctor: Dr. Brown PT Orders: PT CONSULT: s/p left JOSE FRANCISCO for fracture. WBAT with AD Precautions: standard Patient Profile/Admitting Diagnosis: Patient admitted 05/30/24 for management of left femoral neck fx resulting from a twisting injury while skiing. Underwent JOSE FRANCISCO 05/30/24, now post op day #1. PMHX: non-contributory Social History/Home Situation: Retired 59 year old male. Visiting [place] from [place], where he was skiing at [place] with friends. Lives in a private home. Equipment Owned/DME: none Subjective: Saleem states that he is feeling well this morning. He's unsure if he's had any pain meds, but his pain currently is well managed. Describes some soreness about the lateral hip and thigh, but overall feeling surprisingly good. Objective: General Observation: Resting in bed, with IV in RUE. No additional lines. Mental Status: A&Ox3. Pleasant and cooperative throughout. Pain: discomfort Vital Signs: Monitored throughout session, with pressures remaining in one-teens over 50s. No lightheadedness or faintness throughout session. ROM: Right Upper Extremity: WFL Left Upper Extremity: WFL Right Lower Extremity: WFL Left Lower Extremity: WFL Strength: Right Upper Extremity: WFL Left Upper Extremity: WFL Right Lower Extremity: Hip flexion 5/5. Quads 5/5. Ankle DF 5/5. Left Lower Extremity: Quads 3/5 or greater. Ankle DF 3/5 or greater. Sensation: intact distally Bed Mobility/Transfers: supine-sit: supervision, with cues for technique sit-stand: supervision stand-sit: supervision with cues for technique initially Able to toilet independently Able to dress with cues and min A for pants Gait: Ambulates 120'x2, first with FWW, then with crutches. Demonstrates good step through pattern after instruction, without LOB or safety concerns. Stairs: manages therapeutic stairs 2 steps x 1 with bilat axillary crutches, SBA Balance: Static Sitting: normal Dynamic Sitting: normal Static Standing: good Dynamic Standing: fair Special Tests: Mobility Limitations Standardized Measure [facility]-PAC 6 clicks Basic Mobility Inpatient Short Form: Raw Score: 24 Standardized Score: 6.94 CMS Score: 0% impairment Informed Consent/Education: Patient instructed in purpose of PT consult and plan of care. Treatment: Initial Evaluation (58195) Therapeutic Activities (11779): Assess for appropriate assistive device. Fitted with bilateral axillary crutches and instructed in appropriate gait mechanics and use during stair management. Demonstrates excellent safety status and good carryover with technique. Instructed in postop HEP consisting of the following: Ankle pumps 10 x 3 sets Quad sets 10 x 3 sets Glutes sets 10 x 3 sets LAQ 10 x 3 sets Assessment: Patient is a 59year old male referred to physical therapy services with the diagnosis of left hip fracture, status post left JOSE FRANCISCO, postop day 1. Patient presents with clinical signs and symptoms consistent with postop status. He currently demonstrates the following impairment level findings: 1. Decreased left lower extremity strength 2. Gait impairments Impairments are contributing to the following functional limitations: 1. Gait impairments 2. Decreased independence with bed mobility Patient is assessed as a Low 71795 complexity based on the following: History: as above. No complicating factors Examination: As above Presentation: Stable Decision Making: Low complexity Plan of Care/Treatment Plan: No further PT required in acute care setting. Patient issued bilateral axillary crutches, which she will require for ambulation postoperatively. Instructed in appropriate weaning strategies as he feels comfortable. DISCHARGE RECOMMENDATIONS: Home with outpatient PT (patient would like to pursue outpatient PT in [place] postoperatively) TREATMENT CODE/TIME: 46407, [id number] ([id number]) Iva Mortensen, PT, DPT [facility]
[2024-05-31 08:25] VITALS: BP 98/56; PULSE 83; RESP 12; TEMP 37.4; O2SAT 93
[2024-05-31 08:56] VITALS: BP 95/55
[2024-05-31] MEDS: Normal Saline Flush 10 ML SYR IVP ×2 (09:39→13:20)
[2024-05-31] MEDS: Acetaminophen 500 MG TAB 1000 MG PO ×2 (09:39→14:11)
[2024-05-31] MEDS: Dexamethasone 4 MG TAB PO (09:40)
[2024-05-31] MEDS: Aspirin E.C. 81 MG TABEC PO (09:40)
[2024-05-31 11:09] VITALS: BP 108/53; PULSE 87; RESP 14; TEMP 38; O2SAT 94
[2024-05-31] MEDS: oxyCODONE 5 MG TAB PO (14:10)
== END 2024-05-31 14:37 | disposition home or self-care (01) ==
LOC: ER 16:46 → DSU 16:53 → MS 21:32
PROVIDERS: Admitting Provider Student in an Organized Health Care Education/Training Program; Emergency Provider Student in an Organized Health Care Education/Training Program; Visit Provider Student in an Organized Health Care Education/Training Program
PROC: (CPT 27130; principal; 2024-05-30 17:30)
DX: S72.012A Unspecified intracapsular fracture of left femur, initial encounter for closed fracture (principal); W00.0XXA Fall on same level due to ice and snow, initial encounter; Y93.23 Activity, snow (alpine) (downhill) skiing, snowboarding, sledding, tobogganing and snow tubing
CPT/HCPCS: 27130; 36415; 73552; 80048; 80053; 85027; 86850; 86900; 86901; 93005; 96365; 96366; 96375; 96376; 97161; 97530; 99285; 73501; 73502; 85025; 85610; 85730; 93010; C1776; G0378; J0131; J0690; J1100; J1171; J1885; J2003; J2250; J2270; J2371; J2405; J2704; J3010; J8540